=== PATIENT | female | born 1955 | race Caucasian/White ===

== ENCOUNTER → 2017-01-26 | Outpatient (CLI) | payer OTHER ==
--- NOTE | 2017-01-27 08:25 | REPMRS ---
Patient History The patient states she had a clinical breast exam in NOVEMBER 2016.Family history of breast cancer in sister at age 52, endometrial cancer in sister at age 50 or over, colorectal cancer in maternal grandmother at age 52, and prostate cancer in brother at age 52. Digital Mammo Screening Bilat: January 26, 2017 - Exam #: [id number] Bilateral CC and MLO view(s) were taken. Technologist: Amy Ortega, Technologist Prior study comparison: April 11, 2013, digital bilateral screening mammo, performed at [facility]. September 09, 2011, digital bilateral screening mammo, performed at [facility]. FINDINGS: The breast tissue is almost entirely fat. There has been no change in the appearance of the mammogram from the prior studies. There is no interval development of dominant mass, architectural distortion, or clustered microcalcification typical of malignancy. ASSESSMENT: BI-RADS/ACR category 1 mammogram. Negative. Recommendation Routine screening mammogram of both breasts in 1 year (for women over age 40). This mammogram was interpreted with the aid of an FDA-approved computer-aided dectection system. Electronically Signed By: Khalif Bess MD 01/27/17 0842
== END ==
LOC: M RAD 17:51
PROVIDERS: ATTEND General Practice
DX: Z12.31 Encounter for screening mammogram for malignant neoplasm of breast (principal)